=== PATIENT | male | born 1970 | race Caucasian/White ===

== ENCOUNTER → 2021-06-17 | Outpatient (CLI) | payer BC ==
[~2021-06-17] MED LIST: ELIQUIS
== END | disposition home or self-care (01) ==
LOC: CVU 15:28
PROVIDERS: ATTEND Internal Medicine Cardiovascular Disease
DX: I06.1 Rheumatic aortic insufficiency (principal); I11.9 Hypertensive heart disease without heart failure; I48.91 Unspecified atrial fibrillation
CPT/HCPCS: 93306

== ENCOUNTER 2021-06-19 15:35 | Emergency (ER) | payer BC ==
[~2021-06-19] VITALS: Ht 180.3 cm; Wt 102.0 kg
[2021-06-19] MEDS: PROPOFOL 10 MG/ML, 20ML IVPush ONE ×2 (16:00→16:53)
[2021-06-19] MEDS ORDERED: SODIUM CHLORIDE FLUSH 10ML SYR IVF ONE (16:00)
[2021-06-19] MEDS ORDERED: PROPOFOL 10 MG/ML, 20ML ONE ×2 (16:14→16:28)
--- NOTE | 2021-06-19 16:36 | NUR ---
PT IS IS IN AFIB. PT DENIES CHEST PAIN. FAMILY AT BEDSIDE. RAIL CAR REPAIRER ON. EKG DONE. DR FERNÁNDEZ HAS EXPLAINED CARDIOVERSION TO PT. PT HAS SIGNED CONSENT. VS STABLE AT THIS TIME. WILL CONTINUE TO MONITOR.
[2021-06-19] MEDS ORDERED: ELIQUIS (16:38)
[2021-06-19 16:45] LABS: ALBUMIN 4.1 g/dL (3.4-5.0); ANION GAP 6 mmol/L (5-15); CALCIUM 9.5 mg/dL (8.5-10.1); CHLORIDE 101 mmol/L (98-107)
--- NOTE | 2021-06-19 16:47 | NUR ---
DR FERNÁNDEZ IN ROOM. PT READY FOR CARDIOVERSION
[2021-06-19 16:52] LABS: ALANINE AMINOTRANSFERASE 75 U/L (12-78); ALKALINE PHOSPHATASE 64 U/L (45-117); BILIRUBIN,TOTAL 0.7 mg/dL (0.2-1.0); CREATININE 0.76 mg/dL (0.7-1.3); TOTAL PROTEIN 7.9 g/dL (6.4-8.2); TROPONIN I < 0.015 ng/mL (0.000-0.045)
[2021-06-19 16:54] LABS: BASOPHILS % (AUTO) 1 % (0-1); EOSINOPHILS % (AUTO) 2 % (1-7); LYMPHOCYTES % (AUTO) 22 % (22-44); MEAN CORPUSCULAR HEMOGLOBIN 30.3 pg (27.5-34.5); MEAN PLATELET VOLUME 8.3 fL (7.4-10.4); MONOCYTES % (AUTO) 9 % (2-9); NEUTROPHILS % (AUTO) 67 % (42-75); PLATELET COUNT 306 x10^3/uL (130-400); RED BLOOD COUNT 5.92 x10^6/uL (4.38-5.82); RED CELL DISTRIBUTION WIDTH 13.5 % (9.4-14.8)
--- NOTE | 2021-06-19 17:18 | NUR ---
PT IN NSR, RECOVERING FROM CARDIOVERSION. PT A&OX4, AT BEDSIDE. DENIES CP OR SOB
--- NOTE | 2021-06-19 17:21 | NUR ---
REPORT GIVEN TO JERI SEWELL. VS STABLE. STAFF DESIGN ENGINEER ON, PT IN NSR. VS STABLE. PT TALKING WITH AT BEDSIDE. CALL LIGHT IN PLACE.
--- NOTE | 2021-06-19 18:32 | NUR ---
Patient given discharge instructions and they have confirmed that they understand the instructions. Patient ambulatory with steady gait.
[2021-06-19 18:33] VITALS: BP 132/81
== END 2021-06-19 18:35 | disposition home or self-care (01) ==
LOC: ED 18:20
DX: I48.0 Paroxysmal atrial fibrillation (principal); R07.89 Other chest pain
CPT/HCPCS: 36415; 71045; 80053; 84484; 85025; 92960; 93005; 99285; J2704